=== PATIENT | female | born 1985 | race Hispanic/Latino ===

== ENCOUNTER 2020-08-12 14:22 | Emergency (ER) | payer SELFPAY ==
[~2020-08-12] VITALS: Ht 167.6 cm; Wt 161.1 kg
[2020-08-12] MEDS ORDERED: KETOROLAC TROMETHAMINE 60 MG/2 ML VIAL IM ONE (15:15)
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
[2020-08-12] MEDS ORDERED: PREDNISONE20 MG PO (16:42)
[2020-08-12] MEDS ORDERED: CYCLOBENZAPRINE5 MG PO (16:42)
--- NOTE | 2020-08-12 16:48 | Diagnostic Imaging Report ---
EXAMINATION: RIBS UNILAT W/CXR- HOPD INDICATION: Left rib pain. COMPARISON: None FINDINGS: TUBES and LINES: None. LUNGS: Normal lung volumes. Lungs are clear. No consolidations. PLEURA: No pleural effusion or pneumothorax. HEART AND MEDIASTINUM: The cardiomediastinal silhouette is unremarkable. BONES AND SOFT TISSUES: No acute osseous lesion, no displaced rib fracture. Soft tissues are unremarkable. UPPER ABDOMEN: No free air under the diaphragm. IMPRESSION: No acute thoracic radiographic abnormality, specifically no displaced rib fracture. Signed by: Ananya Valdez MD on 08/12/2020 4:45 PM
--- NOTE | 2020-08-12 16:49 | Diagnostic Imaging Report ---
CALCANEUS 2 VIEW LT - HOPD - 3 views HISTORY: Foot pain. COMPARISON: None available. FINDINGS: Bones/joints: No acute fracture or dislocation. Soft tissues: No focal soft tissue abnormality IMPRESSION: No acute radiographic abnormality. Signed by: Ananya Valdez MD on 08/12/2020 4:46 PM
[2020-08-12 16:50] VITALS: BP 105/72
== END 2020-08-12 17:03 | disposition home or self-care (01) ==
LOC: FSED 14:55
DX: R07.89 Other chest pain (principal); S29.011A Strain of muscle and tendon of front wall of thorax, initial encounter; M79.672 Pain in left foot; V43.62XA Car passenger injured in collision with other type car in traffic accident, initial encounter; Y92.488 Other paved roadways as the place of occurrence of the external cause; F17.210 Nicotine dependence, cigarettes, uncomplicated
CPT/HCPCS: 71101; 73650; 96372; 99283; J1885

== ENCOUNTER 2021-06-21 19:35 | Emergency (ER) | payer SELFPAY ==
[~2021-06-21] VITALS: Ht 167.6 cm; Wt 152.0 kg
[~2021-06-21 19:35] MED LIST: CYCLOBENZAPRINE5 MG PO; PREDNISONE20 MG PO
[2021-06-21] MEDS ORDERED: SODIUM CHLORIDE 0.9% 1000ML 1,000 ML ONE (20:59)
[2021-06-21] MEDS ORDERED: ALBUTEROL/IPRATROPIUM 3 ML NEB NEB ONE (22:30)
[2021-06-21] MEDS ORDERED: ALBUTEROL/IPRATROPIUM 3 ML NEB ONE (22:40)
[2021-06-21] MEDS ORDERED: FAMOTIDINE40 MG PO (23:03)
== END 2021-06-21 23:29 | disposition home or self-care (01) ==
LOC: FSED 19:46
DX: R07.81 Pleurodynia (principal); R10.13 Epigastric pain; K29.70 Gastritis, unspecified, without bleeding; R73.9 Hyperglycemia, unspecified; E66.01 Morbid (severe) obesity due to excess calories; M79.18 Myalgia, other site; Z86.16 Personal history of COVID-19
CPT/HCPCS: 71046; 80053; 81003; 82553; 84484; 85025; 85379; 93005; 99284; J7030